=== PATIENT | female | born 1960 | race Native Hawaiian/Other Pacific Islander ===

== ENCOUNTER 2018-02-09 08:56 | Day surgery (SDC) | payer MEDICAID ==
[2018-02-09] MEDS ORDERED: Lactated Ringer's 500 ML IV ONE (09:17)
[2018-02-09] MEDS ORDERED: Propofol 10 mg/ml Inj (20 ML) ONE (11:45)
[2018-02-09 12:19] VITALS: TEMP 97.5
[2018-02-09 12:40] VITALS: BP 106/65; PULSE 58; RESP 17; O2SAT 100
== END 2018-02-09 12:45 | disposition home or self-care (01) ==
LOC: H.ENDO 08:56
PROVIDERS: ATTEND Internal Medicine Gastroenterology
DX: Z12.11 Encounter for screening for malignant neoplasm of colon (principal); E03.9 Hypothyroidism, unspecified; K64.0 First degree hemorrhoids
CPT/HCPCS: 45378; J2001; J2704; J7120